=== PATIENT | male | born 1990 | race Hispanic/Latino ===

== ENCOUNTER 2018-04-26 10:42 | Inpatient (IN) | payer SELFPAY ==
[~2018-04-26 10:42] MED LIST: Dexamethasone 20 MG/5 ML VIAL ONE; Lidocaine 1% PF 5 ML VIAL ONE; PHENYLEPHRINE-NS 100 MCG/ML 10 ML SYRINGE ONE; PROPOFOL 200 MG/20 ML VIAL ONE; ePHEDrine/0.9% NaCl/PF SYRINGE 50 mg/10 ml ONE
[2018-04-26] MEDS ORDERED: Ondansetron HCl/PF 4 MG/2 ML Vial ONE (12:25)
[2018-04-26] MEDS ORDERED: Adacel (T-DAP) 0.5 ML VIAL ONE (12:25)
[2018-04-26] MEDS ORDERED: Morphine 4 MG/ML Carpuject ONE (12:25)
[2018-04-26 12:35] LABS: #Basophils 0.1 thou/uL (0.0-0.2); #Eosinphils 0.4 thou/uL (0.0-0.7); #Lymphocytes 2.1 thou/uL (1.20-3.40); #Monocytes 0.5 thou/uL (0.11-0.59); #Neutrophils 5.7 thou/uL (1.40-6.50); %Basophils 1.4 % (0.0-1.0); %Eosinophils 4.1 % (0.0-10.0); %Lymphocytes 24.2 % (21.0-51.0); %Monocytes 5.6 % (0.0-10.0); %Neutrophils 64.8 % (42.0-75.0); Hemoglobin 15.7 g/dL (14.0-18.0); Mean Corpuscular HGB CONC 34.7 g/dL (32.0-36.0); Mean Corpuscular Hemoglobin 29.3 pg (27.0-31.0); Mean Corpuscular Volume 84.3 fL (78.0-98.0); Mean Platelet Volume 11.9 fL (7.4-10.4); Platelet Count 166 thou/uL (130-400); Red Blood Cell (RBC) Count 5.36 mill/uL (4.70-6.10); White Blood Cell (WBC) Count 8.8 thou/uL (4.8-10.8)
[2018-04-26 12:42] LABS: PTT 28.1 SEC (22.9-36.1); Prothrombin Time 13.1 SEC (12.0-14.7)
[2018-04-26 12:47] LABS: Anion Gap 9 mmol/L (10-20); BUN (Urea Nitrogen) 10 mg/dL (8.9-20.6); Calc. Creatinine Clearance 0 mL/min (70-130); Calcium 9.5 mg/dL (7.8-10.44); Carbon Dioxide 24 mmol/L (22-29); Chloride 111 mmol/L (98-107); Estimated GFR-MDRD Greater than 90; Glucose 102 mg/dL (70-105); Potassium 4.2 mmol/L (3.5-5.1); Sodium 140 mmol/L (136-145)
[2018-04-26] MEDS ORDERED: CEFAZOLIN 1 GM VIAL ONE (13:31)
[2018-04-26] MEDS ORDERED: Sodium Chloride 0.9% 100 ML ONE ×2 (13:32→14:28)
--- NOTE | 2018-04-26 13:52 | RAD ---
LEFT THUMB 3 VIEWS: Date: 04/26/18 HISTORY: Injury, right thumb pain. FINDINGS/IMPRESSION: There is a comminuted, displaced, and angulated fracture involving the shaft of the proximal phalanx of the left thumb. A soft tissue defect is present. Radiopaque density is suspicious for a foreign geni dy. POS: WILMER
[2018-04-26] MEDS ORDERED: Gentamicin 80 MG/2 ML VIAL ONE (14:27)
[2018-04-26] MEDS ORDERED: Morphine 4 MG/ML VIAL ONE (16:30)
[2018-04-26] MEDS ORDERED: Promethazine HCl 25 MG/ML VIAL IM PRN ×2 (22:29→22:40)
[2018-04-26] MEDS ORDERED: traMADol HCl 50 MG TAB PO PRN (22:29)
[2018-04-26] MEDS ORDERED: HYDROcodone/Acetaminophen 5/325 mg Tablet PO PRN (22:29)
[2018-04-26] MEDS ORDERED: Milk Of Magnesia 30 ML UDCUP PO PRN (22:29)
[2018-04-26] MEDS ORDERED: Ondansetron HCl/PF 4 MG/2 ML Vial IV PRN (22:29)
[2018-04-26] MEDS ORDERED: Acetaminophen/Codeine 30-300mg Tablet PO PRN (22:29)
[2018-04-26] MEDS ORDERED: Bisacodyl 10 MG SUPP PR PRN (22:29)
[2018-04-26] MEDS ORDERED: Communication Order-Pharmacy FS SCH ×2 (22:30→22:45)
[2018-04-26] MEDS ORDERED: TETANUS AND DIPHTHERIA TOX/PF 0.5 ML DISP.SYRIN IM SCH (22:30)
[2018-04-26] MEDS ORDERED: Ketorolac Tromethamine 30 MG/ML VIAL IVP PRN ×2 (22:36→22:41)
[2018-04-26] MEDS ORDERED: Meperidine HCl/PF 25 MG/ML VIAL IM PRN ×2 (22:36→22:41)
[2018-04-26] MEDS ORDERED: Promethazine HCl 25 MG/ML VIAL SLOW IVP PRN (22:40)
[2018-04-26] MEDS ORDERED: Ondansetron HCl/PF 4 MG/2 ML Vial IVP PRN (22:40)
[2018-04-26] MEDS ORDERED: Vancomycin HCl 1 GM in Premix Bag 1 BAG IVPB SCH (22:45)
[2018-04-26 23:12] VITALS: BMI 28.2
--- NOTE | 2018-04-26 23:34 | RAD ---
SIX FLUOROSCOPIC SPOT IMAGES OF THE LEFT THUMB: INDICATIONS: ORIF of left thumb. FLUOROSCOPIC TIME: 84.2 seconds. TOTAL EXPOSURE: 2.9 mGy FINDINGS: Submitted images demonstrate placement of crossing Ras wires and associated small interfragment rocky screw fixating a comminuted proximal phalangeal fracture of the left thumb. Fracture alignment i s near anatomic. Instrumentation projects in the expected position. IMPRESSION: Open reduction and internal fixation of left proximal phalangeal fracture. POS: WILMER
[2018-04-27 04:48] VITALS: TEMP 97.8
[2018-04-27] MEDS ORDERED: Aspirin 81 mg Enteric Coated Tablet PO SCH ×2 (09:00)
[2018-04-27 11:46] VITALS: BP 166/85
[2018-04-27] MEDS ORDERED: Vancomycin HCl 1 GM in Premix Bag 1 BAG IVPB SCH (12:00)
--- NOTE | 2018-04-28 13:29 | OP ---
DATE OF PROCEDURE: 04/26/2018 POSTOPERATIVE DIAGNOSES: 1. Left thumb, grade 2 open fracture proximal phalanx. 2. Wound with extensor tendon laceration extensor pollicis longus zone 1. 3. Intrinsic laceration thumb, radial aspect. 4. Radial sensory nerve cutaneous laceration. POSTOPERATIVE DIAGNOSES: 1. Left thumb, grade 2 open fracture proximal phalanx. 2. Wound with extensor tendon laceration extensor pollicis longus zone 1. 3. Intrinsic laceration thumb, radial aspect. 4. Radial sensory nerve cutaneous laceration. FINDINGS: Included mild to moderate contamination with multiple specks of dirt that were removed via magnification closely and some denuded fat was excised and skin was also debrided. The techniques w ere excisional. INSTRUMENTS USED: 1. Tenotomy scissors. 2. Adson's. 3. The irrigation fluid of 6 liters and curette and Dundee blade, depth to include bone and/or mater ial associated open fracture. 4. There was mild to moderate amount of contamination and moderate comminution. DESCRIPTION OF THE PROCEDURE: After successful general LMA technique, limb was prepped and draped. The patient had the surgery indicated because of the grade 2 open fracture and a mildly contaminated by history. On exam, he had a bone defect missing. The patient then had the exsanguinated limb undergo tourniquet inflation to 250 mmHg pressure. Exten ded his zigzag jagged incision, which was transverse, oblique distally from ulnar radius and from pro ximal to the radius to ulna. This allowed great visualization of the fracture, which was in 4 large parts and there was a denuded bone piece that was 2 cm x 5 mm that was saved and cleaned and so recov ered, felt we may need to place it back in the fracture line in order to achieve enough reduction to for bone grafting and . The patient had the wound undergoing final debridement described above, irrigated with 6 liters of no rmal saline and Pulsavac pressure with antibiotics inside and there provisionally pinned provisionall y held in place with a small clamp from the [employer] variable angle mini fragment set. Then, we placed 2 K-wires one from ulnar to radial and one from radial to ulnar being distal to proxi mal. This gave excellent fixation of the fracture. We could see through the bone defect, it was int act and then radiographs confirmed this with no angulation or shortening. No need for further admini strative coordination as now, we took the previously irrigated fragment that was 4 mm wide at its wid est and a 2 cm deep long and we then held in place and placed one lag screw 1.1 across it that was 14 inches. Tourniquet was deflated. We then visualized that the patient had a complete laceration of his extensor pollicis longus at the level of the distal metacarpal, but did not have any flexor polli cis longus laceration repaired with 4 [id number] sutures minimally and then we f inished repairing intrinsic muscle with the same 4-0 Prolene. It is important to note that once retu rned, tourniquet was replaced, we then finished the procedure. The intrinsic repair also used the [facility] 4-0 Prolene. The wounds have been debrided and all material associated with open fracture had bee n removed, and ORIF of the proximal phalanx was completed. The C-arm was then brought in the field showing a near anatomic position. After inspection of the sc rew and wires, we then closed in two layers with interrupted 4-0 Monocryl the deep dermal layers and the epidermis was reapproximated with 3.5 cm. Wound was closed by complex wound technique using 4-0 nylon. The patient then had the microscope brought into the field, then we identified the radial sen milagros nerve just radial to the extensor pollicis longus and we also identified that the primary palmar sensory nerve was intact. The repair was accomplished after slightly removing less than 1/4 mm of t he nail. The cutaneous nerve on each side of the defect, we used 9-0 nylon to reapproximate the nerv e in 4-quadrant technique. The screws were cut as well as possible and then placed in the [place] on. We did not place this over the fracture. Tourniquet was deflated. Hemostasis found, again obtained, closed the wound loosely approximated bec ause it was so zigzagged after debriding the wound edges and skin with a tenotomy scissor, curette akua Liu. Then, once the edges were provisionally fixed, we saw that and then placed the appropriate resources to finish closure, applied bacitracin, Adaptic, 4 x 4s, dressing and placed the patient in a thumb spica splint with no complications.
== END 2018-04-27 12:53 | disposition home or self-care (01) | DRG 906 ==
LOC: SCSER 10:42 → SDC 14:26 → SURG A 22:38
PROVIDERS: ADMIT Orthopaedic Surgery Hand Surgery; ATTEND Orthopaedic Surgery Hand Surgery
PROC: 0HBGXZZ Excision of Left Hand Skin, External Approach (ICD-10-PCS; principal; 2018-04-26)
PROC: 0PSS04Z Reposition Left Thumb Phalanx with Internal Fixation Device, Open Approach (ICD-10-PCS; 2018-04-26)
PROC: 0LQ80ZZ Repair Left Hand Tendon, Open Approach (ICD-10-PCS; 2018-04-26)
PROC: 0HQGXZZ Repair Left Hand Skin, External Approach (ICD-10-PCS; 2018-04-26)
DX: S67.22XA Crushing injury of left hand, initial encounter (principal); S62.512B Displaced fracture of proximal phalanx of left thumb, initial encounter for open fracture; S66.222A Laceration of extensor muscle, fascia and tendon of left thumb at wrist and hand level, initial encounter; S67.02XA Crushing injury of left thumb, initial encounter; W22.8XXA Striking against or struck by other objects, initial encounter; S64.22XA Injury of radial nerve at wrist and hand level of left arm, initial encounter
CPT/HCPCS: 36415; 76001; 80048; 85025; 85610; 85730; 90471; 90715; 96361; 96365; 96374; 96375; J0690; J1100; J1580; J2001; J2270; J2405; J2704; J7050